=== PATIENT | female | born 1980 | race Caucasian/White ===

== ENCOUNTER 2016-10-25 15:05 | Inpatient (IN) | payer BC ==
[~2016-10-25] VITALS: Ht 154.9 cm; Wt 77.4 kg
[~2016-10-25 15:05] MED LIST: CYCL-319 PO; HYDR-3498 PO; IBUP-1542 PO
[2016-10-25 15:52] VITALS: BP 107/73; PULSE 107; RESP 18; Ht 154.9 cm; Wt 77.4 kg
[2016-10-25] MEDS ORDERED: PRENAT PO (15:56)
[2016-10-25] MEDS ORDERED: LACTATED RINGER'S 1,000 ML IV STA (16:23)
--- NOTE | 2016-10-25 17:07 | RADRPT ---
PROCEDURE: OB ultrasound for biophysical profile CLINICAL INDICATION: PTL. TECHNIQUE: Multiple sonographic images of the pelvis were obtained. Transabdominal view of the gr avid uterus are available for review. The images were reviewed on a PACS workstation. COMPARISON: None FINDINGS: breathing movement = 2/2 tone = 2/2 motion = 2/2 Quantitative amniotic fluid volume = 2/2 ALEKSANDER = 14.5 cm Single live intrauterine with cardiac activity at 158 beats per minute. There is a fundal placenta without previa. IMPRESSION: 1. Single living intrauterine gestation in cephalic position. 2. Biophysical profile = 05/27. 3. ALEKSANDER = 14.5 cm. RPTAT: [facility] Physician Myra Date Time Electronically viewed and signed by Physician Myra on 10/25/2016 17:06 /
--- NOTE | 2016-10-25 17:14 | RADRPT ---
PROCEDURE: US OB. CLINICAL INDICATION: labor. TECHNIQUE: Multiple sonographic images of the uterus were obtained. Transvaginal sonograp hy of the cervix was also performed. The images were reviewed on a PACS workstation. COMPARISON: No prior studies are available for comparison. FINDINGS: There is a single live intrauterine gestation. heart rate is 141 beats per minute. Measurements were made in order to determine age. The results are as follows: BPD = 7.99 cm. HC = 29.47 cm. AC = 30.39 cm. FL = 5.95 cm. Estimated weight is 2101 +/- 315 grams. LMP growth percentile is 77 %. Menstrual age by ultrasound dates is 32 weeks 4 days. The estimated date of delivery is 12/16/2016. Transvaginal cervical length is 3.6 cm. Amniotic flu id volume is grossly normal. Position is cephalic and placenta is fundal grade II. There is no evidence for an abruption or place nta previa. IMPRESSION: 1. Single live intrauterine gestation of 32 weeks 4 days menstrual age by ultrasound dates. 2. The estimated date of delivery is 12/16/2016. 3. Cervical length is 3.6 cm. RPTAT: QQ .Juancho Cloud MD, Date Time Electronically viewed and signed by .Juancho Cloud MD, on 10/25/2016 17:14 .R/
[2016-10-25 17:26] LABS: ADD UMIC YES; URINE BILIRUBIN (Dip) NEGATIVE (NEGATIVE); URINE BLOOD (Dip) TRACE (NEGATIVE); URINE COLOR LT. YELLOW (YELLOW); URINE GLUCOSE (Dip) NEGATIVE (NEGATIVE); URINE KETONES (Dip) 15 (NEGATIVE); URINE LEUKOCYTE ESTERASE (Dip) NEGATIVE (NEGATIVE); URINE NITRITE (Dip) NEGATIVE (NEGATIVE); URINE TOTAL PROTEIN (Dip) NEGATIVE (NEGATIVE); URINE UROBILINOGEN (Dip) 0.2 E.U./dL (0.1-1.0)
[2016-10-25] MEDS ORDERED: LACTATED RINGER'S 1,000 ML IV SCH (17:30)
[2016-10-25 17:53] LABS: SQUAMOUS EPITHELIAL CELL,UR FEW; URINE RBCS 0-2 /HPF (0)
[2016-10-25 17:55] LABS: BASOPHILS % 0.3 % (0.0-2.0); EOSINOPHILS # 0.1 10^3/ul (0.0-0.5); EOSINOPHILS % 0.5 % (0.0-7.0); HEMOGLOBIN 12.5 g/dl (12.0-16.0); LYMPHOCYTES # 2.1 10^3/ul (0.8-2.9); LYMPHOCYTES % 18.1 % (15.0-51.0); MEAN CORPUSCULAR HEMOGLOBIN 31.3 pg (29.0-33.0); MEAN CORPUSCULAR HGB CONC 34.7 g/dl (32.0-37.0); MEAN CORPUSCULAR VOLUME 90.1 fl (82.0-101.0); MONOCYTE # 0.5 10^3/ul (0.3-0.9); MONOCYTES % 4.3 % (0.0-11.0); NEUTROPHIL # 8.8 10^3/ul (1.6-7.5); NEUTROPHILS % 76.8 % (39.0-77.0); PLATELET COUNT 176 10^3/UL (140-440); RED CELL DISTRIBUTION WIDTH 13.8 % (11.5-14.5); UNCORRECTED WBC 11.5 10^3/ul (4.8-10.8); WHITE BLOOD COUNT 11.5 10^3/ul (4.8-10.8)
[2016-10-25 17:56] LABS: CONDITION 1
[2016-10-25] MEDS: LACTATED RINGER'S 1,000 ML IV SCH (20:21)
[2016-10-25] MEDS ORDERED: MAGNESIUM SULFATE 4 GM/100 ML 100 ML IV ONE (20:30)
[2016-10-25] MEDS: ACETAMINOPHEN 325 MG TAB PO PRN (20:54)
[2016-10-25] MEDS ORDERED: ACETAMINOPHEN 325 MG TAB PO PRN (21:00)
[2016-10-25] MEDS: MAGNESIUM SULFATE 20 GM/500 ML 500 ML IV SCH (21:31)
[2016-10-25] MEDS: BETAMET NA PHOS/AC(6 MG/ML) 5ML INJ IM SCH (21:52)
[2016-10-25 22:16] LABS: ALBUMIN 3.1 g/dl (3.3-4.9)
[2016-10-25 22:17] LABS: POTASSIUM 3.3 mmol/L (3.5-5.1)
[2016-10-25 22:19] LABS: ALBUMIN/GLOBULIN RATIO 0.91; BILIRUBIN,INDIRECT 0.4 mg/dl (0-1.1); BILIRUBIN,TOTAL 0.4 mg/dl (0.2-1.3); CALCIUM 8.8 mg/dl (8.4-10.2); CREATININE 0.56 mg/dl (0.44-1.00); TOTAL PROTEIN 6.5 g/dl (6.1-8.1)
[2016-10-26] MEDS: ACETAMINOPHEN 325 MG TAB PO PRN ×3 (01:03→13:46)
[2016-10-26] MEDS ORDERED: ACETAMINOPHEN 500 MG TAB PO ONE (04:22)
[2016-10-26] MEDS ORDERED: METOCLOPRAMIDE 10 MG INJ IV ONE (04:30)
[2016-10-26] MEDS: LACTATED RINGER'S 1,000 ML IV SCH ×2 (06:01→20:08)
[2016-10-26] MEDS: MAGNESIUM SULFATE 20 GM/500 ML 500 ML IV SCH ×3 (06:21→18:24)
[2016-10-26] MEDS ORDERED: MULTIVIT/MIN/FOLATE/IRON/PREN TAB PO SCH (09:00)
--- NOTE | 2016-10-26 15:33 | PERINOTE ---
Date/Time of Note Date/Time of Note DATE: 10/26/16 TIME: 15:24 Assessment/Recommendations Other Assessments IUP at 32+ weeks GA UC's. the normal cervical length makes delivery less likely. fFN is reported positive, but this is not a valid test if done after the onset of contractions. I feel that the most likely cause of contractions is mild dehydration due to the illness. Recommendations: I would D/C the magnesium in this patient and observe. If the contractions do not recur, would D/C home. Please note that the patient reports GDM in her last . papers from this are not provided; I would review her diabetes screen results prior to administering an additional dose of steroid. OB Subjective Free Text/Dictaton Patient admitted with contractions at about 32 weeks GA. She also complains of headache and diarrhea. Cervical length at admission was 3.6 cm: I have evaluated these images and they appear to be valid. HD# 2 Current Medications Current Medications Lactated Ringer's 1,000 ml @ 75 mls/hr [id number] IV Last administered on 06:01; Admin Dose 75 MLS/HR; Start 10/25/16 at 20:21 Magnesium Sulfate (Magnesium Sulfate 20 Gm/500 ml) 500 ml @ 50 mls/hr Q10H IV Last administered on 10/26/16 07:53; Admin Dose 50 MLS/HR; Start 10/25/16 at 20: 21 Betamethasone Acet/Betameth SodPhos ([place] Soluspan) 12 mg Q24H IM Last administered on 10/25/16 21:52; Admin Dose 12 MG; Start 10/25/16 at 20:30; Stop 10/26/16 at 20:31 Prenat Multivit/ [place]/Iron/Folic Ac ( S) 1 tab DAILY PO Last administered on 10/26/16 08:48; Admin Dose 1 TAB; Start 10/26/16 at 09:00 Acetaminophen (Tylenol Tab) 650 mg Q4H PRN PO PAIN AND OR ELEVATED TEMP Last administered on 10/26/16 13:46; Admin Dose 650 MG; Start 10/25/16 at 20:30 Acetaminophen (Tylenol Tab) 650 mg Q4H PRN PO PAIN AND OR ELEVATED TEMP; Start 10/25/16 at 21:00 Past Medical History Medical History: other (migraines) Surgical History: no surgical history 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: no pertinent 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 history Para: 6 : 9 LMP (Females 10-50): Family History Significant Family History: diabetes Social History Smoker: non-smoker Alcohol: none Drugs: none OB Admission Exam Physical Exam Vitals: Vital Signs Date Time Temp Pulse Resp B/P Pulse Ox O2 Delivery O2 Flow Rate FiO2 10/25/16 15:52 97.7 107 18 107/73 Room Air 10/26/16 97.8 101 20 105/67 Heart: Rhythm Normal Lungs: Clear Abdomen: WNL Extremities: Normal Heart Rate: 130's Accelerations: Accelerations Present Decelerations: No Decelerations Varibility: Moderate Contractions on Admission: None Last 72 hours Lab Results CBC & BMP 10/25/16 16:48 10/25/16 21:58 Liver Function Test 10/25/16 21:58 Alanine Aminotransferase (ALT/SGPT) 25 Albumin 3.1 L Alkaline Phosphatase 104 Aspartate Amino Transf (AST/SGOT) 17 Direct Bilirubin 0.00 Total Protein 6.5 Magnesium Level Test 10/26/16 00:27 10/26/16 06:19 10/26/16 11:46 Magnesium Level 4.3 H 4.7 H 4.9 H Copies To: CC: VITOR GARZA MD, MARIE H MD Oct 26, 2016 15:32
[2016-10-26] MEDS: ACETAMINOPHEN 500 MG TAB PO PRN (18:23)
[2016-10-26] MEDS: BETAMET NA PHOS/AC(6 MG/ML) 5ML INJ IM SCH (21:49)
[2016-10-26] MEDS ORDERED: DIPHENHYDRAMINE 50 MG CAP PO ONE (22:30)
[2016-10-27] MEDS: MAGNESIUM SULFATE 20 GM/500 ML 500 ML IV SCH (04:05)
[2016-10-27] MEDS: ACETAMINOPHEN 500 MG TAB PO PRN (06:05)
--- NOTE | 2016-10-30 06:49 | DS ---
DATE OF ADMISSION: 10/25/2016 DATE OF DISCHARGE: 10/27/2016 ADMITTING DIAGNOSES: at 31 weeks with threatened labor. HISTORY: A 36-year-old female, 8, para 6, AB 1, estimated date of delivery 12/21/2016, pres ented with contractions. The patient had workup with fibronectin which was reported to be pos itive. On monitoring, the patient had contractions. The patient was admitted on 10/25/2016. The p atient was given intravenous magnesium sulfate for tocolysis, and intramuscular betamethasone was gi rodri for lung maturity. On 10/27/2016, after completing the course of betamethasone, magnesium sulfate was discontinued. The patient requested to leave the hospital. The patient was counseled about the need for monitoring after discontinuing magnesium sulfate; however, the patient states amber t she does not wish to stay in the hospital longer and signed out against medical advice. CONDITION ON DISCHARGE: Guarded. DISCHARGE INSTRUCTIONS: DIET: Regular. ACTIVITIES: Modified bed rest at home. MEDICATIONS: Continue with vitamins. FOLLOWUP: In clinic in 2 days. FINAL DIAGNOSES: 1. , not delivered. 2. Threatened labor. 3. Signed out against medical advice. Dictated By: VITOR HERNANDEZ/GAYE Conf#: [id number] DID#: [id number]
== END 2016-10-27 10:20 | disposition left against medical advice (07) | DRG 780 ==
LOC: L-D 15:05 → OBT 15:05 → OBG 20:05 → OBT 20:05
PROVIDERS: ADMIT Obstetrics & Gynecology; ATTEND Obstetrics & Gynecology
DX: O47.03 False labor before 37 completed weeks of gestation, third trimester (principal); O09.523 Supervision of elderly multigravida, third trimester; Z3A.31 31 weeks gestation of pregnancy
CPT/HCPCS: 36415; 76815; 76817; 76818; 80053; 81001; 81003; 82731; 83735; 85025; 87086; 96360; G0463; J0702; J2765; J3475; J7120

== ENCOUNTER 2016-12-09 17:33 | Inpatient (IN) | payer BC ==
[~2016-12-09] VITALS: Ht 154.9 cm; Wt 86.5 kg
[~2016-12-09 17:33] MED LIST changes: -CYCL-319 PO; -HYDR-3498 PO; -IBUP-1542 PO; +PRENAT PO
[2016-12-09 17:44] VITALS: BP 120/84; PULSE 96; RESP 18; Ht 154.9 cm; Wt 86.5 kg
[2016-12-09] MEDS ORDERED: CARBOPROST 250 MCG INJ IM PRN (18:00)
[2016-12-09] MEDS ORDERED: IBUPROFEN 600 MG TAB PO PRN (18:00)
[2016-12-09] MEDS ORDERED: METHYLERGONOVINE 0.2 MG INJ IM PRN (18:00)
[2016-12-09] MEDS ORDERED: MISOPROSTOL 200 MCG TAB PR PRN (18:00)
[2016-12-09] MEDS ORDERED: OXYTOCIN 30 UNITS/LR 500 ML IV SCH ×3 (18:00→23:30)
[2016-12-09] MEDS ORDERED: LIDOCAINE 1% (MPF) 30 ML INJ INJ PRN (18:00)
[2016-12-09] MEDS ORDERED: AMPICILLIN 2 GM/NS (PMX) 100 ML IV ONE (18:00)
[2016-12-09] MEDS ORDERED: OXYTOCIN 30 UNITS/LR 500 ML IV PRN (18:00)
[2016-12-09] MEDS ORDERED: BUTORPHANOL 2 MG INJ IV PRN (18:00)
[2016-12-09] MEDS ORDERED: LACTATED RINGER'S 1,000 ML IV PRN (18:00)
[2016-12-09 18:48] LABS: BASOPHILS % 0.1 % (0.0-2.0); EOSINOPHILS # 0.1 10^3/ul (0.0-0.5); HEMATOCRIT 33.5 % (37.0-47.0); HEMOGLOBIN 11.6 g/dl (12.0-16.0); LYMPHOCYTES # 2.2 10^3/ul (0.8-2.9); LYMPHOCYTES % 21.3 % (15.0-51.0); MEAN CORPUSCULAR HEMOGLOBIN 30.9 pg (29.0-33.0); MEAN CORPUSCULAR HGB CONC 34.6 g/dl (32.0-37.0); MEAN CORPUSCULAR VOLUME 89.3 fl (82.0-101.0); MEAN PLATELET VOLUME 8.7 fl (7.4-10.4); MONOCYTE # 0.5 10^3/ul (0.3-0.9); MONOCYTES % 5.2 % (0.0-11.0); NEUTROPHIL # 7.4 10^3/ul (1.6-7.5); NEUTROPHILS % 72.4 % (39.0-77.0); PLATELET COUNT 149 10^3/UL (140-440); RED BLOOD COUNT 3.76 10^6/ul (4.20-5.40); RED CELL DISTRIBUTION WIDTH 13.8 % (11.5-14.5); UNCORRECTED WBC 10.3 10^3/ul (4.8-10.8); WHITE BLOOD COUNT 10.3 10^3/ul (4.8-10.8)
[2016-12-09 18:51] LABS: CONDITION 1
[2016-12-09 18:57] LABS: INR 0.9; PROTIME 12.1 Sec (12.2-14.2); PT RATIO 0.9
[2016-12-09 18:58] LABS: PARTIAL THROMBOPLASTIN TIME 26.9 Sec (25.0-35.0)
[2016-12-09] MEDS: LACTATED RINGER'S 1,000 ML IV SCH ×2 (19:02→23:36)
[2016-12-09] MEDS ORDERED: FENTAnyl 2MCG/ML-ROPIV 0.2% 100 ML ONE (19:11)
[2016-12-09] MEDS ORDERED: FENTAnyl 2MCG/ML-ROPIV 0.2% 100 ML BAG EPI SCH (20:30)
[2016-12-09] MEDS ORDERED: NALOXONE (0.4 MG/ML) INJ IV PRN (20:30)
[2016-12-09] MEDS: AMPICILLIN 1 GM/NS (PMX) 50 ML IV SCH (21:40)
--- NOTE | 2016-12-09 23:41 | HP ---
Date/Time of Note Date/Time of Note DATE: 12/09/16 TIME: 23:39 OB - History Hx of Present Chief Complaint: contractions Estimated Due Date: Dec 21, 2016 : 8 Para: 6 Spontaneous : 1 Therapeutic : 0 Care: Good Care Ultrasounds: Normal mid trimester US Obstetrical Complications: None Medical Complications: None Past Family/Social History * Past Medical, Surgical, Family and Obstetric Histories reviewed from chart. GBS Status: Unknown OB Admission Exam Vital Signs Vital Signs Vital Signs Date Time Temp Pulse Resp B/P Pulse Ox O2 Delivery O2 Flow Rate FiO2 12/09/16 17:44 98.1 96 18 120/84 Room Air Physical Exam HEENT: WNL Heart: Rhythm Normal Lungs: Clear Abdomen: WNL Extremities: Normal Cervical Dilatation: 5cm Effacement: 75% Station: -2 Membranes: Intact Heart Rate: 140's Decelerations: No Decelerations Varibility: Moderate Last 72 hours Lab Results CBC & BMP 12/09/16 18:33 OB Assessment/Plan Reason for admission: active labor Plan: Expectant Management VITOR GARZA MD Dec 09, 2016 23:41
[2016-12-10] MEDS: AMPICILLIN 1 GM/NS (PMX) 50 ML IV SCH (02:00)
--- NOTE | 2016-12-10 02:15 | LDN ---
Date/Time of Note Date/Time of Note DATE: 12/10/16 TIME: 02:13 Delivery Summary Placenta Delivered: Spontaneously Meconium: Light Perineum intact?: Yes Anesthesia type: Epidural Estimated blood loss: 200 Sponge & Needle done & correct: Yes All needle counts correct: Yes Any foreign bodies felt in the: No Problems: Infant Delivery Information Sex Infant Sex: male Apgars 1 Minute: 8 5 Minute: 9 Suctioning Nose & mouth suctioned at ping: Yes Delee suction performed: No Umbilical Cord Umbilical cord with: 3 Vessels Cord presentations: no nuchal cord Cord Blood was obtained: Yes Mother & Baby Disposition Disposition Mom & Baby to Maternity; Good: Yes VITOR GARZA MD Dec 10, 2016 02:15
[2016-12-10] MEDS ORDERED: LACTATED RINGER'S 1,000 ML IV* SCH (03:26)
[2016-12-10] MEDS ORDERED: WITCH HAZEL/GLYCERIN PAD PR PRN (03:30)
[2016-12-10] MEDS ORDERED: DIBUCAINE 1% 30 GM OINT PR PRN (03:30)
[2016-12-10] MEDS ORDERED: BENZOCAINE 20% 56 ML SPRAY TOP PRN (03:30)
[2016-12-10] MEDS ORDERED: CARBOPROST 250 MCG INJ IM PRN (03:30)
[2016-12-10] MEDS ORDERED: ACETAMINOPHEN 325 MG TAB PO PRN (03:30)
[2016-12-10] MEDS ORDERED: MISOPROSTOL 200 MCG TAB PR PRN (03:30)
[2016-12-10] MEDS ORDERED: OXYTOCIN 30 UNITS/LR 500 ML IV PRN (03:30)
[2016-12-10] MEDS ORDERED: METHYLERGONOVINE 0.2 MG INJ IM PRN (03:30)
[2016-12-10] MEDS: HYDROCODONE/APAP (7.5/325) TAB PO PRN ×3 (03:44→20:06)
[2016-12-10] MEDS: ACETAMINOPHEN/CODEINE #3 TAB PO PRN ×2 (04:42→14:26)
[2016-12-10 05:00] VITALS: BP 137/81; PULSE 82; RESP 18
[2016-12-10] MEDS: IBUPROFEN 600 MG TAB PO SCH ×4 (06:01→23:31)
[2016-12-10] MEDS ORDERED: KETOROLAC 30 MG INJ IV PRN ×2 (06:30→07:00)
[2016-12-10 08:40] VITALS: BP 113/62; PULSE 84; RESP 18
[2016-12-10] MEDS: SENNA/DOCUSATE NA (8.6MG/50MG) TAB PO SCH ×2 (10:07→20:31)
[2016-12-10] MEDS: FERROUS SULFATE (EC) 325 MG TAB PO SCH ×3 (10:07→20:31)
[2016-12-10 16:10] VITALS: BP 120/80; PULSE 96; RESP 18
[2016-12-10 19:40] VITALS: BP 118/74; PULSE 94; RESP 18
[2016-12-11 04:10] VITALS: BP 97/57; PULSE 78; RESP 18
[2016-12-11] MEDS: IBUPROFEN 600 MG TAB PO SCH ×3 (05:50→17:50)
[2016-12-11 07:50] VITALS: BP 129/91; PULSE 89; RESP 18
[2016-12-11] MEDS: FERROUS SULFATE (EC) 325 MG TAB PO SCH ×3 (08:50→21:20)
[2016-12-11] MEDS: SENNA/DOCUSATE NA (8.6MG/50MG) TAB PO SCH ×2 (08:50→21:20)
[2016-12-11] MEDS: HYDROCODONE/APAP (7.5/325) TAB PO PRN (08:50)
[2016-12-11 09:24] LABS: BASOPHILS % 0.3 % (0.0-2.0); EOSINOPHILS # 0.1 10^3/ul (0.0-0.5); EOSINOPHILS % 1.4 % (0.0-7.0); HEMATOCRIT 32.3 % (37.0-47.0); HEMOGLOBIN 11.3 g/dl (12.0-16.0); LYMPHOCYTES # 2.9 10^3/ul (0.8-2.9); LYMPHOCYTES % 29.5 % (15.0-51.0); MEAN CORPUSCULAR HEMOGLOBIN 31.4 pg (29.0-33.0); MEAN CORPUSCULAR HGB CONC 34.8 g/dl (32.0-37.0); MEAN CORPUSCULAR VOLUME 90.2 fl (82.0-101.0); MEAN PLATELET VOLUME 8.7 fl (7.4-10.4); MONOCYTE # 0.4 10^3/ul (0.3-0.9); MONOCYTES % 4.4 % (0.0-11.0); NEUTROPHIL # 6.3 10^3/ul (1.6-7.5); NEUTROPHILS % 64.4 % (39.0-77.0); PLATELET COUNT 155 10^3/UL (140-440); RED BLOOD COUNT 3.58 10^6/ul (4.20-5.40); RED CELL DISTRIBUTION WIDTH 14.3 % (11.5-14.5); UNCORRECTED WBC 9.8 10^3/ul (4.8-10.8); WHITE BLOOD COUNT 9.8 10^3/ul (4.8-10.8)
[2016-12-11 09:26] LABS: CONDITION 1
[2016-12-11 16:10] VITALS: BP 115/69; PULSE 79; RESP 18
[2016-12-11 19:42] VITALS: BP 127/83; PULSE 87; RESP 18
--- NOTE | 2016-12-11 20:20 | DS ---
Date/Time of Note Date/Time of Note DATE: 12/11/16 TIME: 20:19 Obstetrical Discharge Record Final Diagnosis Final Diagnosis: Term delivered Vaginal Delivery Obstetrical Delivery: Spontaneous Complications Augmentation: Yes Condition on Discharge Physical Assessment Voiding: Yes Bowel Movement: Yes Breast: Soft, non-tender Fundus: Firm Calf Tenderness: No Patient Condition: Stable VITOR GARZA MD Dec 11, 2016 20:20
[2016-12-12] MEDS: IBUPROFEN 600 MG TAB PO SCH ×3 (00:15→12:48)
[2016-12-12 03:55] VITALS: BP 116/66; PULSE 94; RESP 18
[2016-12-12 08:15] VITALS: BP 138/82; PULSE 82; RESP 20
[2016-12-12] MEDS ORDERED: DIPHTH/TET/ACEL PERTUSS (ADULT) 0.5 ML VIAL IM* ONE (09:00)
[2016-12-12] MEDS: SENNA/DOCUSATE NA (8.6MG/50MG) TAB PO SCH (09:44)
[2016-12-12] MEDS: FERROUS SULFATE (EC) 325 MG TAB PO SCH (09:44)
[2016-12-13] MEDS ORDERED: HYDR-902 PO (18:25)
== END 2016-12-12 15:33 | disposition home or self-care (01) | DRG 775 ==
LOC: L-D 17:33 → OBT 17:33 → L-D 17:38 → OBT 18:16 → PP1 12-10 04:28
PROVIDERS: ADMIT Obstetrics & Gynecology; ATTEND Obstetrics & Gynecology
PROC: 10E0XZZ Delivery of Products of Conception, External Approach (ICD-10-PCS; principal; 2016-12-10)
DX: O80 Encounter for full-term uncomplicated delivery (principal); Z3A.39 39 weeks gestation of pregnancy; Z37.0 Single live birth
CPT/HCPCS: 62319; 85025; 85610; 85730; 86592; 86900; 86901; 87340; 90715; G0463; J0290; J1885; J2210; J2590; J3010; J7120

== ENCOUNTER 2016-12-13 14:43 | Emergency (ER) | payer BC ==
[~2016-12-13] VITALS: Ht 162.6 cm; Wt 78.0 kg
[2016-12-13 14:47] VITALS: Ht 162.6 cm; Wt 78.0 kg
[2016-12-13 16:35] LABS: ADD SCAN DIFF NO
[2016-12-13 16:37] LABS: BASOPHILS % 0.3 % (0.0-2.0); EOSINOPHILS # 0.2 10^3/ul (0.0-0.5); EOSINOPHILS % 1.5 % (0.0-7.0); HEMATOCRIT 35.3 % (37.0-47.0); HEMOGLOBIN 12.1 g/dl (12.0-16.0); LYMPHOCYTES # 2.1 10^3/ul (0.8-2.9); LYMPHOCYTES % 18.6 % (15.0-51.0); MEAN CORPUSCULAR HEMOGLOBIN 30.8 pg (29.0-33.0); MEAN CORPUSCULAR HGB CONC 34.3 g/dl (32.0-37.0); MEAN CORPUSCULAR VOLUME 89.8 fl (82.0-101.0); MEAN PLATELET VOLUME 9.9 fl (7.4-10.4); MONOCYTE # 0.7 10^3/ul (0.3-0.9); MONOCYTES % 5.8 % (0.0-11.0); NEUTROPHIL # 8.3 10^3/ul (1.6-7.5); NEUTROPHILS % 73.4 % (39.0-77.0); PLATELET COUNT 215 10^3/UL (140-415); RED BLOOD COUNT 3.93 10^6/ul (4.20-5.40); RED CELL DISTRIBUTION WIDTH 13.8 % (11.5-14.5); WHITE BLOOD COUNT 11.3 10^3/ul (4.8-10.8)
[2016-12-13 16:38] LABS: ADD UMIC YES; URINE BILIRUBIN (Dip) NEGATIVE (NEGATIVE); URINE BLOOD (Dip) 3+ (NEGATIVE); URINE COLOR LT. YELLOW (YELLOW); URINE GLUCOSE (Dip) NEGATIVE (NEGATIVE); URINE KETONES (Dip) NEGATIVE (NEGATIVE); URINE LEUKOCYTE ESTERASE (Dip) NEGATIVE (NEGATIVE); URINE NITRITE (Dip) NEGATIVE (NEGATIVE); URINE TOTAL PROTEIN (Dip) TRACE (NEGATIVE); URINE UROBILINOGEN (Dip) 1.0 E.U./dL (0.1-1.0)
[2016-12-13 16:46] LABS: ALBUMIN 3.3 g/dl (3.3-4.9); POTASSIUM 3.8 mmol/L (3.5-5.1)
[2016-12-13 16:48] LABS: BILIRUBIN,INDIRECT 0.2 mg/dl (0-1.1); BILIRUBIN,TOTAL 0.2 mg/dl (0.2-1.3); CREATININE 0.61 mg/dl (0.44-1.00)
[2016-12-13 16:49] LABS: ALBUMIN/GLOBULIN RATIO 0.94; TOTAL PROTEIN 6.8 g/dl (6.1-8.1)
[2016-12-13 16:50] LABS: CALCIUM 9.1 mg/dl (8.4-10.2)
[2016-12-13] MEDS ORDERED: HYDROCODONE/APAP (5/325) TAB PO ONE (17:00)
[2016-12-13 17:10] LABS: BACTERIA,URINE MODERATE; URINE RBCS >200 /HPF (0)
--- NOTE | 2016-12-13 17:48 | ERD ---
ER Documentation Chief Complaint Date/Time DATE: 12/13/16 TIME: 17:47 Chief Complaint VAG BLEED , ABD PAIN , BACK PAIN X 1 DAY , HAD NORMAL DLIVERY ON 12/10/16 HPI This is a 36-year-old female who presents to the ER with vaginal bleeding that started yesterday. Patient had a baby on December 10, 2016. She was sent home on December 11, 2016. Patient had a normal spontaneous vaginal delivery with no complications. Patient denies any fevers or chills. Abdominal pain radiates to her back and patient states that she feels very bloated. She denies any nausea vomiting or diarrhea. ROS 12 point review of systems was done, all negative except per HPI. Medications Home Meds Reported Medications Multivit/Min/Fol Ac/Iron/Pren* ( S*) 1 Tab Tab, 1 TAB PO DAILY, TAB 10/25/16 Allergies Allergies: Coded Allergies: No Known Allergy (Unverified , 10/25/16) PMhx/Soc Medical and Surgical Hx: pt denies Medical Hx, pt denies Surgical Hx History of Surgery: No Anesthesia Reaction: No Hx Neurological Disorder: No Hx Respiratory Disorders: No Hx Cardiac Disorders: No Hx Psychiatric Problems: No Hx Miscellaneous Medical Probl: No Hx Alcohol Use: No Hx Substance Use: No Hx Tobacco Use: No Physical Exam Vitals Vital Signs Date Time Temp Pulse Resp B/P Pulse Ox O2 Delivery O2 Flow Rate FiO2 12/13/16 14:47 98.1 102 16 129/85 98 Physical Exam GENERAL: The patient is well developed and appropriate for usual state of health , in no apparent distress. HEENT: Atraumatic. CHEST: Clear to auscultation bilaterally. There are no rales, wheezes or rhonchi. HEART: Regular rate and rhythm. No murmurs, clicks, rubs or gallops. ABDOMEN: Soft, nondistended. Good bowel sounds. No rebound or guarding. No gross peritonitis. No gross organomegaly or masses. No Up sign or McBurney point tenderness. Patient is tender to palpation all over her abdomen, more tender to palpation along the suprapubic region. BACK: No midline or flank tenderness. NEURO: Alert and oriented. Result Diagram: 12/13/16 1629 12/13/16 1629 Results 24 hrs Laboratory Tests Test 2/24/17 16:15 12/13/16 16:29 Urine Bacteria MODERATE Urine Bilirubin NEGATIVE Urine Clarity CLOUDY Urine Color LT. YELLOW Urine Epithelial Cells MODERATE Urine Glucose NEGATIVE% Urine Hemoglobin 3+ Urine Ketones NEGATIVE Urine Leukocyte Esterase NEGATIVE Urine Microscopic RBC >200/HPF Urine Microscopic WBC 2-5/HPF Urine Nitrite NEGATIVE Urine Specific [place] 1.020 Urine Total Protein TRACE Urine Urobilinogen 1.0 E.U./dL Urine pH 8.0 Alanine Aminotransferase (ALT/SGPT) 36IU/L Albumin 3.3g/dl Albumin/Globulin Ratio 0.94 Alkaline Phosphatase 133IU/L Anion Gap 15 Aspartate Amino Transf (AST/SGOT) 31IU/L Basophils # 0.010^3/ul Basophils % 0.3% Blood Urea Nitrogen 12mg/dl Calcium Level 9.1mg/dl Carbon Dioxide Level 28mmol/L Chloride Level 102mmol/L Creatinine 0.61mg/dl Direct Bilirubin 0.00mg/dl Eosinophils # 0.210^3/ul Eosinophils % 1.5% Globulin 3.50g/dl Glucose Level 102mg/dl Hematocrit 35.3% Hemoglobin 12.1g/dl Indirect Bilirubin 0.2mg/dl Lymphocytes # 2.110^3/ul Lymphocytes % 18.6% Mean Corpuscular Hemoglobin 30.8pg Mean Corpuscular Hemoglobin Concent 34.3g/dl Mean Corpuscular Volume 89.8fl Mean Platelet Volume 9.9fl Monocytes # 0.710^3/ul Monocytes % 5.8% Neutrophils # 8.310^3/ul Neutrophils % 73.4% Nucleated Red Blood Cells # 0.010^3/ul Nucleated Red Blood Cells % 0.0/100WBC Platelet Count 49181^3/UL Potassium Level 3.8mmol/L Red Blood Count 3.9310^6/ul Red Cell Distribution Width 13.8% Sodium Level 141mmol/L Total Bilirubin 0.2mg/dl Total Protein 6.8g/dl White Blood Count 11.310^3/ul Current Medications Medications (Trade) Dose Ordered Sig/Laura Route PRN Reason Start Time Stop Time Status Last Admin Dose Admin Acetaminophen/ Hydrocodone Bitart ([place] (5/325)) 1 tab ONCE ONCE PO 12/13/16 17:00 12/13/16 17:01 DC 12/13/16 17:19 Procedures/MDM I contacted patient's OB doctor Maribel, he has agreed to come and evaluate patient as her ultrasound does show retained products of conception vs. blood clots. At this time patient is hemodynamically stable and her pain is being treated. Departure Diagnosis: Primary Impression: Vaginal bleeding Condition: Stable SARAH ERNST Dec 13, 2016 17:48
--- NOTE | 2016-12-13 17:51 | RADRPT ---
PROCEDURE: US Pelvis. CLINICAL INDICATION: 2 days . Vaginal bleeding. TECHNIQUE: The pelvis was evaluated with transabdominal and transvaginal sonography in the axial a nd sagittal planes. COMPARISON: No prior study is available for comparison. FINDINGS: Uterus: 16.4 x 9.8 x 12.2 cm. Endometrium: Heterogeneous measuring 19.6 mm. Right ovary: Not visualized. Left ovary: 5.0 x 2.3 x 3.8 cm. Uterine masses: None. Ovarian masses: Right ovary is not visualized. Left ovary is normal. Color Doppler and pulsed Doppl er sonography demonstrate normal flow to the left ovary. Other pelvic masses: None. Free fluid: None. IMPRESSION: 1. Heterogeneous endometrium measuring 19.6 mm. This may be due to blood products or retained prod ucts of conception. Follow-up advised. 2. Enlarged uterus consistent with the state. 3. Right ovary not visualized. 4. Otherwise normal pelvic ultrasound. RPTAT: QQ .Juancho Cloud MD, MD Date Time Electronically viewed and signed by .Juancho Cloud MD, on 12/13/2016 17:50 .R/
[2016-12-13] MEDS ORDERED: ONDANSETRON 4 MG INJ IV STA (18:07)
[2016-12-13] MEDS ORDERED: HYDR-902 PO (18:25)
[2016-12-13] MEDS ORDERED: morphine 10 MG INJ IV ONE (18:30)
[2016-12-13 18:37] VITALS: BP 128/82; PULSE 77; RESP 16; TEMP 98.1
== END 2016-12-13 18:35 | disposition home or self-care (01) ==
LOC: FTE 14:43
DX: O72.2 Delayed and secondary postpartum hemorrhage (principal)
CPT/HCPCS: 76856; 80053; 81001; 85025; 96374; 96375; 99285; J2270; J2405; Z7610; 81003

== ENCOUNTER 2017-02-05 16:50 | Emergency (ER) | payer BC ==
[~2017-02-05] VITALS: Ht 154.9 cm; Wt 76.5 kg
[~2017-02-05 16:50] MED LIST changes: +HYDR-902 PO
[2017-02-05 17:03] VITALS: Ht 154.9 cm; Wt 76.5 kg
[2017-02-05] MEDS ORDERED: HYDROmorphONE 1 MG/ML SYG IV STA ×2 (19:30→20:42)
[2017-02-05] MEDS ORDERED: ONDANSETRON 4 MG INJ IV STA (19:30)
[2017-02-05 19:56] LABS: ADD SCAN DIFF NO
[2017-02-05 20:07] LABS: BASOPHILS % 0.3 % (0.0-2.0); EOSINOPHILS # 0.3 10^3/ul (0.0-0.5); EOSINOPHILS % 2.5 % (0.0-7.0); HEMATOCRIT 41.2 % (37.0-47.0); HEMOGLOBIN 14.2 g/dl (12.0-16.0); LYMPHOCYTES # 3.6 10^3/ul (0.8-2.9); LYMPHOCYTES % 36.2 % (15.0-51.0); MEAN CORPUSCULAR HEMOGLOBIN 30.5 pg (29.0-33.0); MEAN CORPUSCULAR HGB CONC 34.5 g/dl (32.0-37.0); MEAN CORPUSCULAR VOLUME 88.6 fl (82.0-101.0); MEAN PLATELET VOLUME 10.1 fl (7.4-10.4); MONOCYTE # 0.6 10^3/ul (0.3-0.9); MONOCYTES % 5.5 % (0.0-11.0); NEUTROPHIL # 5.5 10^3/ul (1.6-7.5); NEUTROPHILS % 54.8 % (39.0-77.0); PLATELET COUNT 213 10^3/UL (140-415); RED BLOOD COUNT 4.65 10^6/ul (4.20-5.40); RED CELL DISTRIBUTION WIDTH 13.2 % (11.5-14.5)
[2017-02-05 20:12] LABS: ALBUMIN 4.5 g/dl (3.3-4.9)
[2017-02-05 20:13] LABS: POTASSIUM 3.6 mmol/L (3.5-5.1)
[2017-02-05 20:15] LABS: ALBUMIN/GLOBULIN RATIO 1.07; BILIRUBIN,INDIRECT 0.4 mg/dl (0-1.1); BILIRUBIN,TOTAL 0.4 mg/dl (0.2-1.3); CREATININE 0.82 mg/dl (0.44-1.00); TOTAL PROTEIN 8.7 g/dl (6.1-8.1)
[2017-02-05 20:16] LABS: CALCIUM 9.5 mg/dl (8.4-10.2)
--- NOTE | 2017-02-05 20:21 | RADRPT ---
PROCEDURE: Right Upper Quadrant Ultrasound. CLINICAL INDICATION: Abdominal Pain TECHNIQUE: Multiple real-time images were acquired of the patient's right upper quadrant abdomen a nd retroperitoneum utilizing a high resolution transducer. COMPARISON: None FINDINGS: The liver measures 16.8 cm, and demonstrates diffusely increased echogenicity. The main portal vein is patent with proper directional flow. There is no intrahepatic biliary ductal dilatation. The extr ahepatic common bile duct measures 4 mm. There is cholelithiasis. There is no gallbladder wall thickening or pericholecystic fluid. The visualized pancreas is unremarkable. The right kidney measures 10.3 cm and demonstrates normal echotexture. There is no right renal calcu keysha or hydronephrosis. The visualized abdominal aorta and IVC are grossly unremarkable. IMPRESSION: Mild hepatomegaly with severe fatty infiltration. Cholelithiasis without evidence of acute cholecystitis. Normal CBD. RPTAT: EE Physician Amara Date Time Electronically viewed and signed by Physician Amara on 02/05/2017 20:20 /
[2017-02-05] MEDS ORDERED: DICLOFENAC SODIUM 37.5 MG/ML VIAL IV STA (20:42)
[2017-02-05] MEDS ORDERED: DICY10CA60 PO (21:13)
[2017-02-05] MEDS ORDERED: HYDR-902 PO (21:13)
[2017-02-05] MEDS ORDERED: ONDA4TAB14 PO (21:14)
--- NOTE | 2017-02-05 21:19 | ERD ---
ER Documentation Chief Complaint Date/Time DATE: 02/05/17 TIME: 21:17 Chief Complaint PT HAS RLQ AP X 2 DAYS 10 HPI This is a 36-year-old female with a history of right upper quadrant pain for the past 2 days described as crampy and nonradiating. She is not sure if food makes it worse or better she has not eaten much in the past 2 days. No nausea vomiting diarrhea no fever no chest pain or shortness of breath. ROS All systems reviewed and are negative except as per history of present illness. Medications Home Meds Active Scripts Ondansetron (Ondansetron Odt) 4 Mg Tab.rapdis, 4 MG PO Q6H Y for NAUSEA AND/OR VOMITING, #10 TAB Prov:PELON CANS Denise. DO 02/05/17 Hydrocodone/Acetaminophen ([place] 10-325 Tablet) 1 Each Tablet, 1 TAB PO Q6H Y for PAIN, #20 TAB Prov:LORI CANSTTEJAS A. DO 02/05/17 Dicyclomine Hcl* (Bentyl*) 10 Mg Capsule, 20 MG PO QID, #60 CAP Prov:LEKKOSAPOSTOLOS A. DO 02/05/17 Hydrocodone/Acetaminophen ([place] 10-325 Tablet) 1 Each Tablet, 1 EACH PO Q6, # 10 TAB Prov:SARAH ERNST 12/13/16 Reported Medications Multivit/Min/Fol Ac/Iron/Pren* ( S*) 1 Tab Tab, 1 TAB PO DAILY, TAB 10/25/16 Allergies Allergies: Coded Allergies: No Known Allergy (Unverified , 10/25/16) PMhx/Soc History of Surgery: No Anesthesia Reaction: No Hx Neurological Disorder: No Hx Respiratory Disorders: No Hx Cardiac Disorders: No Hx Psychiatric Problems: No Hx Miscellaneous Medical Probl: No Hx Alcohol Use: No Hx Substance Use: No Hx Tobacco Use: No Smoking Status: Never smoker FmHx Family History: No coronary disease Physical Exam Vitals Vital Signs Date Time Temp Pulse Resp B/P Pulse Ox O2 Delivery O2 Flow Rate FiO2 02/05/17 17:03 98.6 89 17 124/84 98 Physical Exam Const: Well-developed, well-nourished Head: Atraumatic, normocephalic Eyes: Normal Conjunctiva, PERRLA, EOMI, normal sclera, no nystagmus ENT: Normal External Ears, Nose and Mouth, moist mucus membranes. Neck: Full range of motion. No meningismus, no lymphadenopathy. Resp: Clear to auscultation bilaterally, no wheezing, rhonchi, rales Cardio: Regular rate and rhythm, no murmurs, S1 S2 present Abd: Soft, right upper quadrant with mild to moderate tenderness to palpation, non distended. Normal bowel sounds, no guarding or rebound, no pulsitile abdominal masses or bruits Skin: No petechiae or rashes, no ecchymosis , no maculopapular rash Back: No midline or flank tenderness Ext: No cyanosis, or edema, FROM x 4, normal inspection, neurovascularly intact x 4 Neur: Awake and alert, STR 5/5 x 4, sensation intact x 4, no focal findings, cerebellum intact Psych: Normal Mood and Affect Result Diagram: 02/05/17 1950 02/05/171949 Results 24 hrs Laboratory Tests Test 02/05/17 19:50 White Blood Count 10.010^3/ul Red Blood Count 4.6510^6/ul Hemoglobin 14.2g/dl Hematocrit 41.2% Mean Corpuscular Volume 88.6fl Mean Corpuscular Hemoglobin 30.5pg Mean Corpuscular Hemoglobin Concent 34.5g/dl Red Cell Distribution Width 13.2% Platelet Count 95270^3/UL Mean Platelet Volume 10.1fl Neutrophils % 54.8% Lymphocytes % 36.2% Monocytes % 5.5% Eosinophils % 2.5% Basophils % 0.3% Nucleated Red Blood Cells % 0.0/100WBC Neutrophils # 5.510^3/ul Lymphocytes # 3.610^3/ul Monocytes # 0.610^3/ul Eosinophils # 0.310^3/ul Basophils # 0.010^3/ul Nucleated Red Blood Cells # 0.010^3/ul Sodium Level 141mmol/L Potassium Level 3.6mmol/L Chloride Level 98mmol/L Carbon Dioxide Level 29mmol/L Anion Gap 18 Blood Urea Nitrogen 13mg/dl Creatinine 0.82mg/dl Glucose Level 117mg/dl Calcium Level 9.5mg/dl Total Bilirubin 0.4mg/dl Direct Bilirubin 0.00mg/dl Indirect Bilirubin 0.4mg/dl Aspartate Amino Transf (AST/SGOT) 72IU/L Alanine Aminotransferase (ALT/SGPT) 112IU/L Alkaline Phosphatase 89IU/L Total Protein 8.7g/dl Albumin 4.5g/dl Globulin 4.20g/dl Albumin/Globulin Ratio 1.07 Lipase 76U/L Current Medications Medications (Trade) Dose Ordered Sig/Laura Route PRN Reason Start Time Stop Time Status Last Admin Dose Admin Hydromorphone HCl (Dilaudid) 1 mg ONCE STAT IV 02/05/17 19:30 02/05/17 19:31 DC 02/05/17 19:49 Ondansetron HCl (Zofran Inj) 4 mg ONCE STAT IV 02/05/17 19:30 02/05/17 19:31 DC 02/05/17 19:49 Hydromorphone HCl (Dilaudid) 1 mg ONCE STAT IV 02/05/17 20:42 02/05/17 20:44 DC 02/05/17 20:47 Diclofenac Sodium (Dyloject) 37.5 mg ONCE STAT IV 02/05/17 20:42 02/05/17 20:44 DC 02/05/17 20:47 Procedures/MDM PROCEDURE: Right Upper Quadrant Ultrasound. CLINICAL INDICATION: Abdominal Pain TECHNIQUE: Multiple real-time images were acquired of the patient's right upper quadrant abdomen and retroperitoneum utilizing a high resolution transducer. COMPARISON: None FINDINGS: The liver measures 16.8 cm, and demonstrates diffusely increased echogenicity. The main portal vein is patent with proper directional flow. There is no intrahepatic biliary ductal dilatation. The extrahepatic common bile duct measures 4 mm. There is cholelithiasis. There is no gallbladder wall thickening or pericholecystic fluid. The visualized pancreas is unremarkable. The right kidney measures 10.3 cm and demonstrates normal echotexture. There is no right renal calculus or hydronephrosis. The visualized abdominal aorta and IVC are grossly unremarkable. IMPRESSION: Mild hepatomegaly with severe fatty infiltration. Cholelithiasis without evidence of acute cholecystitis. Normal CBD. RPTAT: EE Physician Amara Date Time Electronically viewed and signed by Bob Maldonado Physician on 02/05/2017 20:20 RA/ CC: KARL CAN DO Patient has some slightly elevated liver function tests with no elevated bilirubin. No elevation common bile duct. She has been given pain medication will discharge home with Dontrell and Beatriz Follow-up with general surgery Departure Diagnosis: Primary Impression: Gallstones Condition: Stable Patient Instructions: What Are Gallstones?, Gallstones Referrals: TIANA REDMOND MD, APOSTOLOS A. DO Feb 05, 2017 21:19
[2017-02-05 21:34] VITALS: BP 124/82; PULSE 75; RESP 15; TEMP 98.3
== END 2017-02-05 21:35 | disposition home or self-care (01) ==
LOC: FTE 16:50
DX: K80.20 Calculus of gallbladder without cholecystitis without obstruction (principal)
CPT/HCPCS: 76705; 80053; 83690; 85025; J1170; J2405; Z7610; 36415; 96374; 96375; 96376

== ENCOUNTER 2017-02-24 10:02 | Day surgery (SDC) | payer BC ==
[2017-02-24] VITALS (19 sets, daily range): BP systolic 79–116; BP diastolic 50–71; PULSE 78–94; RESP 9–18; Ht 154.9 cm; Wt 76.2 kg
[~2017-02-24] VITALS: Ht 154.9 cm; Wt 76.2 kg
[~2017-02-24 10:02] MED LIST changes: +CEFAZOLIN 1 GM INJ ONE; +DICY10CA60 PO; +ONDA4TAB14 PO
[2017-02-24 12:29] LABS: ADD SCAN DIFF NO
[2017-02-24] MEDS ORDERED: CEFAZOLIN 2 GM/50 ML (PMX) 50 ML IVPB ONE (12:30)
[2017-02-24] MEDS ORDERED: SOD CHLORIDE 0.9% 1,000 ML IV SCH (12:30)
[2017-02-24 12:33] LABS: BASOPHILS % 0.2 % (0.0-2.0); EOSINOPHILS # 0.2 10^3/ul (0.0-0.5); EOSINOPHILS % 2.1 % (0.0-7.0); HEMATOCRIT 39.8 % (37.0-47.0); HEMOGLOBIN 13.9 g/dl (12.0-16.0); LYMPHOCYTES # 3.4 10^3/ul (0.8-2.9); LYMPHOCYTES % 35.3 % (15.0-51.0); MEAN CORPUSCULAR HEMOGLOBIN 30.4 pg (29.0-33.0); MEAN CORPUSCULAR HGB CONC 34.9 g/dl (32.0-37.0); MEAN CORPUSCULAR VOLUME 87.1 fl (82.0-101.0); MEAN PLATELET VOLUME 10.2 fl (7.4-10.4); MONOCYTE # 0.5 10^3/ul (0.3-0.9); MONOCYTES % 4.8 % (0.0-11.0); NEUTROPHIL # 5.5 10^3/ul (1.6-7.5); NEUTROPHILS % 57.3 % (39.0-77.0); PLATELET COUNT 202 10^3/UL (140-415); RED BLOOD COUNT 4.57 10^6/ul (4.20-5.40); WHITE BLOOD COUNT 9.7 10^3/ul (4.8-10.8)
[2017-02-24] MEDS ORDERED: HYDR-906 PO (12:39)
[2017-02-24 12:47] LABS: INR 0.98; PARTIAL THROMBOPLASTIN TIME 29.5 Sec (25.0-35.0)
[2017-02-24 12:55] LABS: ALBUMIN 4.3 g/dl (3.3-4.9); ALBUMIN/GLOBULIN RATIO 1.19; BILIRUBIN,INDIRECT 0.6 mg/dl (0-1.1); BILIRUBIN,TOTAL 0.6 mg/dl (0.2-1.3); TOTAL PROTEIN 7.9 g/dl (6.1-8.1)
[2017-02-24 12:57] LABS: CALCIUM 9.2 mg/dl (8.4-10.2); CREATININE 0.73 mg/dl (0.44-1.00); POTASSIUM 4.1 mmol/L (3.5-5.1)
[2017-02-24] MEDS ORDERED: PROPOFOL 20 ML ONE (13:45)
[2017-02-24] MEDS ORDERED: MIDAZOLAM 1 MG/ML 2 ML INJ ONE (13:45)
[2017-02-24] MEDS ORDERED: BUPIVACAINE 0.25% (MPF) 30 ML INJ ONE (14:10)
[2017-02-24] MEDS ORDERED: DEXAMETHASONE 4 MG/ML 1 ML INJ ONE (14:27)
[2017-02-24] MEDS ORDERED: KETOROLAC 30 MG INJ ONE (14:27)
[2017-02-24] MEDS ORDERED: METOCLOPRAMIDE 10 MG INJ ONE (14:27)
[2017-02-24] MEDS ORDERED: ONDANSETRON 4 MG INJ ONE (14:27)
[2017-02-24] MEDS ORDERED: DIPHENHYDRAMINE 50 MG INJ IV PRN (14:30)
[2017-02-24] MEDS ORDERED: morphine (1 MG/ML) 10ML SYRINGE IV PRN ×3 (14:30)
[2017-02-24] MEDS ORDERED: OXYCODONE/ACETAMINOPHEN (5/325) TAB PO PRN ×2 (14:30)
[2017-02-24] MEDS ORDERED: MEPERIDINE 25 MG INJ IV PRN (14:30)
[2017-02-24] MEDS ORDERED: METOCLOPRAMIDE 10 MG INJ IV PRN (14:30)
[2017-02-24] MEDS ORDERED: HYDROmorphONE (0.2 MG/ML) 10ML SYG IV PRN ×3 (14:30)
[2017-02-24] MEDS ORDERED: ONDANSETRON 4 MG INJ IV PRN (14:30)
[2017-02-24] MEDS ORDERED: LABETALOL HCL 20MG INJ IV PRN (14:30)
[2017-02-24] MEDS ORDERED: EPHEDrine SULFATE 50 MG/5 ML SYG IV PRN (14:30)
[2017-02-24] MEDS ORDERED: BACITRACIN 0.9 GM OINT ONE (14:50)
--- NOTE | 2017-02-24 14:56 | OPR ---
Date/Time of Note Date/Time of Note DATE: 02/24/17 TIME: 14:54 Operative Report Procedure Date: February 24, 2017 Preoperative Diagnosis scalp mass Postoperative Diagnosis scalp mass Operation Performed 1. scalp mass excision with 3 cm incision and 3 cm mass 2. localized adjacent tissue transfer with the use of skin flaps with 3 sq cm defect Surgeon: Yao MEHTA Specimens scalp mass Complications: None Yao MEHTA February 24, 2017 14:56
[2017-02-24] MEDS ORDERED: HYDROCODONE/APAP (5/325) TAB PO ONE (15:00)
--- NOTE | 2017-02-24 18:47 | OPR ---
DATE OF OPERATION: 02/24/2017 INDICATION: This is a 36-year-old female with a scalp mass. She requests surgical excision. Risks , alternatives, benefits, and personnel were discussed with the patient. Patient expressed understa nding and consents to the operation. PREOPERATIVE DIAGNOSIS: Scalp mass. POSTOPERATIVE DIAGNOSIS: Scalp mass. OPERATION PERFORMED: 1. Excision of scalp mass with 3 cm size incision and 3 cm size mass. 2. A localized tissue transfer with the use of skin flaps over a 3 square cm defect. SURGEON: Nain Grayson MD SPECIMEN: Scalp mass. COMPLICATIONS: None. ANESTHESIA: General. PROCEDURE: The patient was taken to the OR and prepped and draped in the usual sterile fashion. Chatterjee rgical timeout was performed. IV antibiotics were given. Transverse incision was made over the sca lp mass with a 15 blade. Dissection cautery was carried down to the mass and circumferentially exci sed including the cyst cavity of the mass. There was good hemostasis. Irrigation was used to wash out the wound. Due to the large tissue defect, localized adjacent tissue transfer with the use of s kin flaps was performed. A multilayer closure with interrupted 3-0 Vicryl and running 4-0 Monocryl. Dictated By: NAIN BURT/GAYE Conf#: [id number] DID#: [id number]
== END 2017-02-24 17:20 | disposition home or self-care (01) ==
LOC: SDS 10:02
PROVIDERS: ATTEND Surgery
DX: L72.11 Pilar cyst (principal)
CPT/HCPCS: 14020; 80053; 84703; 85025; 85610; 85730; 88307; J0690; J1100; J1170; J1885; J2250; J2405; J2765; J3010; Z7512; Z7610

== ENCOUNTER 2017-04-21 18:24 | Emergency (ER) | payer BC ==
[~2017-04-21] VITALS: Ht 160 cm; Wt 76.0 kg
[~2017-04-21 18:24] MED LIST changes: -CEFAZOLIN 1 GM INJ ONE; -DICY10CA60 PO; -HYDR-902 PO; +HYDR-906 PO; -ONDA4TAB14 PO; -PRENAT PO
[2017-04-21 18:27] VITALS: Ht 160 cm; Wt 76.0 kg
[2017-04-21] MEDS ORDERED: ONDANSETRON 4 MG INJ IV STA (18:45)
[2017-04-21] MEDS ORDERED: SOD CHLORIDE 0.9% 1,000 ML IV STA (18:45)
[2017-04-21 18:51] LABS: URINE BLOOD (Dip) POC 2+ (NEGATIVE)
[2017-04-21] MEDS ORDERED: ACETAMINOPHEN 325 MG TAB PO ONE (19:00)
[2017-04-21] MEDS ORDERED: IBUPROFEN 600 MG TAB PO ONE (19:00)
[2017-04-21 19:08] LABS: ADD SCAN DIFF NO
--- NOTE | 2017-04-21 19:08 | ERA ---
ER Documentation Chief Complaint Date/Time DATE: 04/21/17 TIME: 19:06 Chief Complaint RLQ abd pain x 2 days, worst today w/ vomiting HPI This is a delightful 36-year-old female with a history of gallstones presenting with a chief complaint of right upper quadrant abdominal pain worsening over the past 2 days. Patient states that eating makes it worse. Patient denies any other symptoms. Patient denies fever, vomiting, diarrhea, anorexia, weight loss, migrating pain, constipation, postprandial abdominal pain, new or recently changed medications, genital pain or ingestion of new or undercooked food. ROS All systems reviewed and are negative except as per history of present illness. Medications Home Meds Active Scripts Hydrocodone/Acetaminophen ([place] 10-325 Tablet) 1 Each Tablet, 1 TAB PO Q6H Y for PAIN, #5 TAB Prov:GAIL REY PA-C 04/21/17 Ibuprofen* (Ibuprofen*) 400 Mg Tablet, 400 MG PO Q6H Y for PAIN for 10 Days, TAB Prov:GAIL REY PA-C 04/21/17 Reported Medications Hydrocodone/Acetaminophen ([place] 5-325 Tablet) 1 Each Tablet, 1 EACH PO, TAB 02/24/17 Allergies Allergies: Coded Allergies: No Known Allergy (Unverified , 02/24/17) PMhx/Soc History of Surgery: No Anesthesia Reaction: No Hx Neurological Disorder: No Hx Respiratory Disorders: No Hx Cardiac Disorders: No Hx Psychiatric Problems: No Hx Miscellaneous Medical Probl: Yes (gallstone) Hx Alcohol Use: No Hx Substance Use: No Hx Tobacco Use: No Smoking Status: Never smoker Physical Exam Vitals Vital Signs Date Time Temp Pulse Resp B/P Pulse Ox O2 Delivery O2 Flow Rate FiO2 04/21/17 21:37 82 18 136/88 98 Room Air 04/21/17 20:08 62 18 108/72 98 Room Air 04/21/17 18:27 97.4 91 20 118/75 98 Physical Exam Const: Healthy-appearing. Well-nourished. Well-developed. No acute distress. Head: Normocephalic, Atraumatic. Eyes: Non-injected; No scleral erythema, discharge or foreign body. EOMI and SHRUTHI bilaterally. Ears: Normal External Ears, EACs clear, TM normal bilaterally without erythema. Nose: Normal nose without discharge, septal deviation, or sinus tenderness. Oral: No oral edema visualized. Mucous membranes moist and pink. Neck: No cervical lymphadenopathy, masses or goiter palpated. Full range of motion. Supple. Trachea midline. ~ No meningismus. Pulm: Good air movement in upper and lower respiratory tracts. No dyspnea, stridor, tripoding or drooling. Clear to auscultation bilaterally. Cardio: Regular rate and rhythm; No murmurs, gallops or rubs auscultated. No JVD grossly observed. Radial and posterior tibial pulses 2+ bilaterally. No cyanosis. Capillary refill less than 2 seconds. Abd: Mild right upper quadrant tenderness. Negative Up's sign. Soft, non distended. No guarding, masses. Normal bowel sounds. No McBurney's point tenderness. MS: Normal motor strength, normal tone with gross examination. Skin: No petechiae or rashes. No ulcer, induration, jaundice. Good turgor. Back: No midline, flank or CVA tenderness. Ext: No cyanosis, or edema. Normal movement of all extremities grossly observed. Neur: Awake, alert and oriented x3. Neurovascularly intact bilaterally. Psych: Normal Mood and Affect. Result Diagram: 04/21/17184904/21/171849 Results 24 hrs Laboratory Tests Test 04/21/17 18:50 04/21/17 18:56 White Blood Count 8.210^3/ul Red Blood Count 4.2010^6/ul Hemoglobin 13.1g/dl Hematocrit 37.1% Mean Corpuscular Volume 88.3fl Mean Corpuscular Hemoglobin 31.2pg Mean Corpuscular Hemoglobin Concent 35.3g/dl Red Cell Distribution Width 13.2% Platelet Count 46537^3/UL Mean Platelet Volume 10.1fl Neutrophils % 46.4% Lymphocytes % 45.7% Monocytes % 4.5% Eosinophils % 2.9% Basophils % 0.4% Nucleated Red Blood Cells % 0.0/100WBC Neutrophils # 3.810^3/ul Lymphocytes # 3.810^3/ul Monocytes # 0.410^3/ul Eosinophils # 0.210^3/ul Basophils # 0.010^3/ul Nucleated Red Blood Cells # 0.010^3/ul Urine Color YELLOW Urine Clarity SLIGHTLY CLOUDY Urine pH 5.0 Urine Specific [place] 1.055 Urine Ketones TRACEmg/dL Urine Nitrite NEGATIVEmg/dL Urine Bilirubin NEGATIVEmg/dL Urine Urobilinogen NEGATIVEmg/dL Urine Leukocyte Esterase NEGATIVELeu/ul Urine Microscopic RBC 77/HPF Urine Microscopic WBC 5/HPF Urine Squamous Epithelial Cells FEW/HPF Urine Calcium Oxalate Crystals MODERATE/HPF Urine Mucus MODERATE/HPF Urine Hemoglobin NEGATIVEmg/dL Urine Glucose NEGATIVEmg/dL Urine Total Protein 1+mg/dl Sodium Level 141mmol/L Potassium Level 3.6mmol/L Chloride Level 105mmol/L Carbon Dioxide Level 25mmol/L Anion Gap 15 Blood Urea Nitrogen 13mg/dl Creatinine 0.89mg/dl Glucose Level 114mg/dl Calcium Level 9.3mg/dl Total Bilirubin 0.3mg/dl Direct Bilirubin 0.00mg/dl Indirect Bilirubin 0.3mg/dl Aspartate Amino Transf (AST/SGOT) 23IU/L Alanine Aminotransferase (ALT/SGPT) 39IU/L Alkaline Phosphatase 66IU/L Total Protein 7.7g/dl Albumin 4.7g/dl Globulin 3.00g/dl Albumin/Globulin Ratio 1.56 Lipase 184U/L Bedside Urine pH (LAB) 5.5 Bedside Urine Protein (LAB) 2+ Bedside Urine Glucose (UA) Negative Bedside Urine Ketones (LAB) Negative Bedside Urine Blood 2+ Bedside Urine Nitrite (LAB) Negative Bedside Urine Leukocyte Esterase (L Negative Current Medications Medications (Trade) Dose Ordered Sig/Laura Route PRN Reason Start Time Stop Time Status Last Admin Dose Admin Sodium Chloride (NS) 1,000 ml @ 1,000 mls/hr Q1H STAT IV 04/21/17 18:45 04/21/17 19:44 DC 04/21/17 19:05 Ondansetron HCl (Zofran Inj) 4 mg ONCE STAT IV 04/21/17 18:45 04/21/17 18:47 DC 04/21/17 19:05 Acetaminophen (Tylenol Tab) 650 mg ONCE ONCE PO 04/21/17 19:00 04/21/17 19:01 DC Ibuprofen (Motrin) 600 mg ONCE ONCE PO 04/21/17 19:00 04/21/17 19:01 DC Morphine Sulfate (morphine) 4 mg ONCE STAT IV 04/21/17 19:26 04/21/17 19:27 DC 04/21/17 19:34 Hydromorphone HCl (Dilaudid) 1 mg ONCE STAT IM 7/3/17 20:32 04/21/17 20:34 DC 04/21/17 20:37 Ondansetron HCl (Zofran Odt) 4 mg ONCE STAT ODT 04/21/17 20:32 04/21/17 20:34 DC 04/21/17 20:37 Procedures/MDM Patient was evaluated and worked up for right upper quadrant abdominal discomfort. Patient refused ibuprofen and acetaminophen for pain relief. The patient was given 1 L saline bolus. 4 mg of morphine was ordered by Dr. Ortiz. The workup included CBC, CMP, urinalysis, urine . Urine was negative. Last menstrual period started today. Urinalysis showed moderate oxalate crystals and hematuria most likely due to current menstrual cycle but otherwise unremarkable. CBC and CMP were unremarkable. Most likely diagnosis is primary dysmenorrhea versus cholelithiasis versus abdominal pain of unknown etiology. At this time I do not suspect ovarian torsion, tubo- ovarian abscess, mechanical obstruction no GI or tract, hernia, intestinal ischemia, PID, AAA, diverticulitis, cholangitis, cholecystitis, intestinal ischemia or pyelonephritis. As well as hepatitis, appendicitis, acute pancreatitis, or pneumonia. Upon reevaluation the patient was still complaining of pain. I enlisted the help of my supervising physician Dr. Morgan who evaluated and spoke with the patient and suggested a limited abdominal ultrasound to evaluate for possible acute pathologies. Dilaudid and Zofran was ordered by my attending Dr. Morgan. The ultrasound was read by the radiologist and given the following impression: Pancreas partially seen, fatty liver within normal limits, gallbladder seen with stones in the lumen/no wall thickening, right kidney appears normal. At this time the most likely diagnosis remains the same with cholelithiasis versus primary dysmenorrhea versus abdominal pain of unknown etiology. Patient will be given [place] as outpatient for discomfort. Departure Diagnosis: Primary Impression: Cholelithiasis Qualified Code: K80.20 - Calculus of gallbladder without cholecystitis without obstruction Additional Impression: Abdominal pain Qualified Code: R10.11 - Right upper quadrant abdominal pain Condition: Stable Additional Instructions: Follow up with your PCP within the next 1-3 days for a more thorough evaluation and a possible referral to a specialist. Return the the emergency department immediately if symptoms worsen or change. If you have any questions regarding medications, ask your pharmacist or us before you leave. If any adverse reactions occur while taking your medications, discontinue the treatment and return to the emergency department immediately. Take your medications as directed, and complete the entire course of treatment. GAIL REY PA-C Apr 21, 2017 19:08
[2017-04-21 19:15] LABS: BASOPHILS % 0.4 % (0.0-2.0); EOSINOPHILS # 0.2 10^3/ul (0.0-0.5); EOSINOPHILS % 2.9 % (0.0-7.0); HEMATOCRIT 37.1 % (37.0-47.0); HEMOGLOBIN 13.1 g/dl (12.0-16.0); LYMPHOCYTES # 3.8 10^3/ul (0.8-2.9); LYMPHOCYTES % 45.7 % (15.0-51.0); MEAN CORPUSCULAR HEMOGLOBIN 31.2 pg (29.0-33.0); MEAN CORPUSCULAR HGB CONC 35.3 g/dl (32.0-37.0); MEAN CORPUSCULAR VOLUME 88.3 fl (82.0-101.0); MEAN PLATELET VOLUME 10.1 fl (7.4-10.4); MONOCYTE # 0.4 10^3/ul (0.3-0.9); MONOCYTES % 4.5 % (0.0-11.0); NEUTROPHIL # 3.8 10^3/ul (1.6-7.5); NEUTROPHILS % 46.4 % (39.0-77.0); PLATELET COUNT 221 10^3/UL (140-415); RED CELL DISTRIBUTION WIDTH 13.2 % (11.5-14.5); WHITE BLOOD COUNT 8.2 10^3/ul (4.8-10.8)
[2017-04-21 19:23] LABS: ADD UMIC YES; UR ASCORBIC ACID 40 mg/dL (NEGATIVE); UR BILIRUBIN (Dip) NEGATIVE (NEGATIVE); UR BLOOD (Dip) NEGATIVE (NEGATIVE); UR CLARITY SLIGHTLY CLOUDY (CLEAR); UR COLOR YELLOW (YELLOW); UR GLUCOSE (Dip) NEGATIVE (NEGATIVE); UR KETONES (Dip) TRACE mg/dL (NEGATIVE); UR LEUKOCYTE ESTERASE (Dip) NEGATIVE Leu/ul (NEGATIVE); UR MUCUS MODERATE /HPF (NONE SEEN); UR NITRITE (Dip) NEGATIVE (NEGATIVE); UR RBC 77 /HPF (0-5); UR SPECIFIC GRAVITY (Dip) 1.055 (1.003-1.030); UR SQUAMOUS EPITHELIAL CELL FEW /HPF (FEW); UR TOTAL PROTEIN (Dip) 1+ mg/dl (NEGATIVE); UR UROBILINOGEN (Dip) NEGATIVE (NEGATIVE)
[2017-04-21] MEDS ORDERED: morphine 4 MG/ML VIAL IV STA (19:26)
[2017-04-21 19:37] LABS: ALBUMIN 4.7 g/dl (3.3-4.9); ALBUMIN/GLOBULIN RATIO 1.56; BILIRUBIN,INDIRECT 0.3 mg/dl (0-1.1); BILIRUBIN,TOTAL 0.3 mg/dl (0.2-1.3); CALCIUM 9.3 mg/dl (8.4-10.2); CREATININE 0.89 mg/dl (0.44-1.00); POTASSIUM 3.6 mmol/L (3.5-5.1); TOTAL PROTEIN 7.7 g/dl (6.1-8.1)
[2017-04-21] MEDS ORDERED: IBUP400T22 PO (19:53)
[2017-04-21] MEDS ORDERED: ONDANSETRON (ODT) 4 MG TAB ODT STA (20:32)
[2017-04-21] MEDS ORDERED: HYDROmorphONE 1 MG/ML SYG IM STA (20:32)
--- NOTE | 2017-04-21 20:38 | QN ---
Documentation Comment I have seen and evaluated the patient along with the PA and/or HYGIENE COORDINATOR provider. I agree with the evaluation and plan of care. Please see their documentation for full ER course and evaluation. In short: The patient presents with right upper quadrant abdominal pain that is postprandial. She describes a history of cholelithiasis. She describes mild nausea. No right lower quadrant pain no migratory pain. On exam: The patient has tenderness just inferior to the right upper quadrant with negative Up sign. No tenderness of the right lower quadrant, no tenderness to McBurney's point, no peritonitis, negative Rovsing sign. Assessment and plan: The patient's clinical exam is most consistent with likely biliary colic. She has no leukocytosis, no hepatobiliary obstruction and she is not she started her period. The patient has no tenderness to the right lower quadrant therefore I do not believe this is consistent with ovarian cyst or torsion no evidence of acute appendicitis. This is again most consistent with likely biliary colic. The patient is complaining of persistent pain and asking for narcotics. On repeat examination the patient still has some mild discomfort therefore prompting ultrasound of the gallbladder. I advised that she needs to follow-up with an outpatient general surgeon for likely nonemergent cholecystectomy. I informed the patient that we cannot provide significant prescription for narcotic pain medications in the emergency department, she needs a follow-up with a primary care physician. A small prescription can be provided by the physician's conventions assistant. The patient was given Dilaudid here in the emergency room. ANTIONE CLEMENTS MD Apr 21, 2017 20:38
--- NOTE | 2017-04-21 21:20 | RADRPT ---
PROCEDURE: Right upper quadrant abdominal ultrasound. CLINICAL INDICATION: Abdominal pain TECHNIQUE: Reis scale and color doppler ultrasound images of the right upper quadrant. COMPARISON: 02/05/2017 FINDINGS: Pancreas: Not well visualized. Liver: Morphology: Normal in size and contour. Echogenicity: Increased echogenicity of the liver parenchyma suggestive of hepatic steatosis. Focal lesions: None. Main portal vein: Patent with hepatopetal flow. Biliary System: Normal appearing gallbladder wall. Multiple gallstones are present within the gallbladder. No intrahepatic biliary dilatation. Common bile duct measures 3.3 mm in maximal dimension. Kidneys: Right 9.5 cm in length. Right renal cortical thickness is preserved. Normal echogenicity. No hydronephrosis. No renal calculi. No focal lesions. No free fluid identified. IMPRESSION: Cholelithiasis without evidence of abnormal gallbladder wall thickening to suggest cholecystitis. Normal caliber of the intrahepatic and extrahepatic biliary system. Increased echogenicity of the liver parenchyma suggestive of hepatic steatosis. Unchanged from the previous examination. RPTAT: AADD .Andrew Sommers MD, Date Time Electronically viewed and signed by .Andrew Sommers MD, on 04/21/2017 21:20 .B/
[2017-04-21] MEDS ORDERED: HYDR-902 PO (21:30)
[2017-04-21 21:37] VITALS: BP 136/88; PULSE 82; RESP 18
== END 2017-04-21 21:38 | disposition home or self-care (01) ==
LOC: FTE 18:24
DX: K80.20 Calculus of gallbladder without cholecystitis without obstruction (principal)
CPT/HCPCS: 36415; 76705; 80053; 81001; 83690; 85025; 96372; 96374; 96375; 99285; J1170; J2270; J2405; J7030; Z7610; 81003

== ENCOUNTER 2018-02-11 19:58 | Emergency (ER) | END 2018-02-11 22:28 | disposition home or self-care (01) ==